=== PATIENT | male | born 1990 | race Caucasian/White ===

== ENCOUNTER 2021-07-23 05:03 | Emergency (ER) | payer MEDICARE, MEDICAID ==
[2021-07-23 05:52] VITALS: BP 123/80; PULSE 94
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
== END 2021-07-23 07:07 | disposition home or self-care (01) ==
LOC: MW.ED 05:03
DX: B34.9 Viral infection, unspecified (principal); Z88.5 Allergy status to narcotic agent; Z20.822 Contact with and (suspected) exposure to COVID-19
CPT/HCPCS: 99283; U0002